=== PATIENT | female | born 1995 | race Hispanic/Latino ===

== ENCOUNTER → 2022-04-16 | Outpatient (CLI) | payer OTHER ==
[~2022-04-16] MED LIST: IOPAMIDOL 300MG/ML 100 ML INFUS..BTL IV ONE
== END ==
LOC: DX 09:16
PROVIDERS: ATTEND Obstetrics & Gynecology
DX: N97.9 Female infertility, unspecified (principal)
CPT/HCPCS: 74740; 81025; Q9967